=== PATIENT | female | born 1990 | race Caucasian/White ===

== ENCOUNTER 2018-11-11 13:19 | Emergency (ER) | payer OTHER ==
[2018-11-11] MEDS ORDERED: KETOROLAC 15 MG/ML VIAL IVP STA (13:53)
[2018-11-11] MEDS ORDERED: diphenhydrAMINE INJ 50 MG/ML VIAL IVP STA (13:53)
[2018-11-11] MEDS ORDERED: DEXAMETHASONE 10 MG/ML VIAL IVP STA (13:53)
[2018-11-11] MEDS ORDERED: METOCLOPRAMIDE 10 MG/2 ML VIAL IVP STA (13:53)
[2018-11-11] MEDS ORDERED: SODIUM CHLORIDE 0.9% 1,000 ML IV ONE (13:53)
--- NOTE | 2018-11-11 13:57 | ED Physician Documentation ---
PD HPI HEADACHE - Stated complaint Stated Complaint: HEADACHE - Chief complaint Chief Complaint: Heent - Additional information Additional information: 28-year-old female presents the emergency department for an ongoing headache related to acute sinusitis. The patient had ongoing facial pressure and dental pain and was seen by the dentist who did a x-ray which showed acute sinusitis at the source of her pain. The patient reports ongoing bilateral sinus pressure and throbbing pain through her head. The patient denies any sudden onset. The patient denies neck stiffness. The patient denies fevers, vision changes or focal neurologic changes. Symptoms are described as moderate. No improvement with Tylenol. No other associated symptoms Review of Systems Constitutional: denies: Fever, Chills Eyes: denies: Discharge Ears: denies: Ear pain Nose: reports: Congestion, Sinus pressure / pain Throat: denies: Sore throat Cardiac: denies: Chest pain / pressure GI: denies: Abdominal Pain : denies: Dysuria Skin: denies: Rash Musculoskeletal: denies: Neck pain Neurologic: reports: Headache. denies: Generalized weakness Immunocompromised: denies: Chemotherapy PD PAST MEDICAL HISTORY - Present Medications Home Medications: Ambulatory Orders Medication Instructions Recorded Confirmed Amoxicillin/Potassium Clav [Amox 1 each PO BID 11/11/18 11/11/18 Tr-K Clv 875-125 mg Tab] Guaifenesin [Mucinex] 600 mg PO BID 11/11/18 11/11/18 - Allergies Allergies/Adverse Reactions: Allergies Allergy/AdvReac Type Severity Reaction Status Date / Time No Known Drug Allergies Allergy Verified 11/11/18 13:30 PD ED PE NORMAL - General General: Alert and oriented X 3, No acute distress - HEENT HEENT: Atraumatic, PERRL, EOMI, Ears normal, Moist mucous membranes, Pharynx benign, Other (The patient has pressure across her frontal sinuses, there is no facial swelling or facial skin changes) - Neck Neck: Supple, no meningeal sign - Cardiac Cardiac: RRR - Respiratory Respiratory: No respiratory distress - Derm Derm: Normal color - Extremities Extremities: No deformity - Neuro Neuro: Alert and oriented X 3, seismology technical officer 2-12 intact, No motor deficit, Normal speech - Psych Psych: Normal affect Results - Vitals Vitals: Vital Signs - 24 hr 11/11/18 13:28 Temperature 37.3 C Heart Rate 93 Respiratory 18 Rate Blood Pressure 145/83 H O2 Saturation 99 Oxygen O2 Source Room air PD MEDICAL DECISION MAKING - ED course ED course: The patient's headache is consistent with a sinus headache, the patient's symptoms were treated in the emergency department and she has had much improvement and feels much better. Presently the patient appears appropriate for discharge and ongoing outpatient management. There is no clinical findings to suggest meningitis, subarachnoid hemorrhage And currently no further workup is warranted in the emergency department at this time. I advised follow-up with primary care and recommended returning for any worsening or any concerns. Departure - Departure Disposition: 01 Home, Self Care Clinical Impression: Acute sinusitis Qualifiers: Sinusitis location: unspecified location Recurrence: not specified as recurrent Qualified Code(s): J01.90 - Acute sinusitis, unspecified Headache Qualifiers: Headache type: other headache syndrome Qualified Code(s): G44.89 - Other headache syndrome Condition: Good Instructions: ED Headache Sinus Comments: Please follow-up with your primary care physician in 7-10 days for recheck Please return to the emergency department for any worsening or any concerns.
[2018-11-11 15:13] VITALS: BP 121/95
== END 2018-11-11 15:13 | disposition home or self-care (01) ==
LOC: ED 13:19
DX: J01.90 Acute sinusitis, unspecified (principal); G44.89 Other headache syndrome
CPT/HCPCS: 96361; 96374; 99282; 99283; J1200; J2765